=== PATIENT | male | born 1995 | race Caucasian/White ===

== ENCOUNTER 2018-07-27 08:09 | Emergency (ER) | payer OTHER ==
[2018-07-27 08:34] VITALS: BP 134/84
--- NOTE | 2018-07-27 08:35 | ED Physician Documentation ---
History of Present Illness - Stated complaint Stated Complaint: GROIN PX - History obtained from History obtained from: Patient - Additonal information Additional information: Patient is a previously healthy 23-year-old male with remote history of hydrocele presenting with left testicular pain over the past several days. Patient denies any known injury, trauma, heavy lifting, or other inciting incident. Patient reports swelling, redness, and pain to the left testicle only. Patient denies any right testicle complaints, as well as any changes to the penis including swelling, redness, drainage, lesions, or rash. Patient also denies hernias or other complaints to either groin. Patient denies history of or concern for STDs. He also denies abdominal pain, urine changes, stool changes, vomiting. Patient denies any particular improving or worsening factors to his complaints, but has been taking Tylenol. Review of Systems GI: denies: Abdominal Pain, Vomiting, Diarrhea : reports: Testicular pain. 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) - Present Medications Home Medications: Ambulatory Orders Medication Instructions Recorded Confirmed RX: Doxycycline Hyclate 100 mg PO BID #20 capsule 07/27/18 - Allergies Allergies/Adverse Reactions: Allergies Allergy/AdvReac Type Severity Reaction Status Date / Time No Known Drug Allergies Allergy Verified 07/27/18 08:34 PD ED PE NORMAL - General General: Alert and oriented X 3, No acute distress, Well developed/nourished - HEENT HEENT: Atraumatic - Respiratory Respiratory: No respiratory distress - Abdomen Abdomen: Soft, Non tender, Non distended - Male Male : Switch Inspector present, Other (No palpable inguinal hernias bilaterally. Penile exam within normal limits with no swelling, redness, drainage, lesions, or other rash present. Right testicle within normal limits. Left testicle swollen, slightly erythematous without rash, and tender.) - Derm Derm: Normal color, Warm and dry, No rash Results - Vitals Vitals: Vital Signs - 24 hr 07/27/18 08:20 Temperature 36.5 C Heart Rate 74 Respiratory 12 Rate Blood Pressure 134/84 H O2 Saturation 100 Oxygen O2 Source Room air - Labs Labs: Laboratory Tests 07/27/18 11:08 Urine Color YELLOW Urine Clarity CLEAR Urine pH 7.0 Ur Specific [place] 1.020 Urine Protein NEGATIVE Urine Glucose (UA) NEGATIVE Urine Ketones NEGATIVE Urine Occult Blood NEGATIVE Urine Nitrite NEGATIVE Urine Bilirubin NEGATIVE Urine Urobilinogen 0.2 (NORMAL) Ur Leukocyte Esterase NEGATIVE Ur Microscopic Review NOT INDICATED Urine Culture Comments NOT INDICATED PD MEDICAL DECISION MAKING - ED course Complexity details: re-evaluated patient, considered differential, d/w patient ED course: Most concerning for varicocele, epididymitis, hydrocele, hernia given patient's age, lack of inciting incident, and physical exam findings. Also consider torsion, orchitis, STD, but feel much less likely. Do not feel patient requires invasive testing, blood work, medications at this time, but do plan to obtain urine sample, STD testing, and ultrasound to further evaluate. Patient advised of this plan and is agreeable. Urinalysis return unremarkable. Gonorrhea/chlamydia testing is still pending. Ultrasound did find evidence of uncomplicated varicocele and hydrocele. Also plan to treat for epididymitis given patient's significant pain, as well as physical exam findings. Discussed results and recommendations with patient, who is agreeable to this plan. Departure - Departure Disposition: 01 Home, Self Care Clinical Impression: Varicocele Hydrocele Qualifiers: Hydrocele type: unspecified Qualified Code(s): N43.3 - Hydrocele, unspecified Condition: Good Instructions: ED Epididymitis, ED Varicocele Follow-Up: your,doctor [Other] Prescriptions: RX: Doxycycline Hyclate 100 mg PO BID #20 capsule Comments: Please take antibiotic as prescribed for possible epididymitis and testicular pain. Please refrain from sex until all symptoms have improved. Please follow- up with your primary care physician in next 2-3 days to discuss further referral to urologist or treatment for varicocele and hydrocele. May also use a jock strap at this time to help alleviate pain by elevating testicle. Please keep area otherwise clean and dry. Please return to ED sooner if experience worsening symptoms or other concerns. Discharge Date/Time: 07/27/18 11:34
--- NOTE | 2018-07-27 10:01 | Ultrasound Report ---
Reason: left testicle swelling, pain, redness Procedure Date: 07/27/2018 Accession Number: [id number] / [id number] Procedure: US - Testicle w/Doppler CPT Code: FULL RESULT: EXAM: SCROTAL ULTRASOUND EXAM DATE: 07/27/2018 09:31 AM. CLINICAL HISTORY: Left testicular swelling x2 days. Steady pain. COMPARISON: None. TECHNIQUE: Real-time scanning was performed with static images obtained. Color-flow images were utilized. FINDINGS: Right: Testis: 5 x 2.3 x 2.7 cm. Normal size and echotexture. No mass, calcification, or abnormal blood flow. Epididymis: 3.7 x 0.9 x 1.5 cm. Normal size and echotexture. No mass or abnormal blood flow. Hydrocele: Small. Varicocele: None. Left: Testis: 5 x 2.7 x 3.1 cm. Normal size and echotexture. No mass, calcification, or abnormal blood flow. Epididymis: 4.3 x 1 x 1.7 cm. Slightly diffusely increased in size. Normal in echotexture. No abnormal blood flow. Hydrocele: Small to moderate. Varicocele: Large varicocele. IMPRESSION: 1. Large left-sided varicocele. Small to moderate left-sided hydrocele. Slight increased volume to the left epididymis possibly due to venous congestion. These factors correspond to the palpable findings. 2. No evidence of torsion. No solid mass. [facility]
[2018-07-27] MEDS ORDERED: cefTRIAXone 250 MG VIAL IM STA (11:00)
[2018-07-27] MEDS ORDERED: LIDOCAINE 1% 2 ML VIAL SUBQ ONE (11:00)
[2018-07-27 11:40] LABS: BILIRUBIN,URINE NEGATIVE (NEGATIVE); GLUCOSE, URINE (UA) NEGATIVE (NEGATIVE); KETONES,URINE (UA) NEGATIVE (NEGATIVE); LEUKOCYTE ESTERASE, URINE NEGATIVE (NEGATIVE); NITRITE,URINE NEGATIVE (NEGATIVE); OCCULT BLOOD,URINE NEGATIVE (NEGATIVE); PROTEIN,URINE NEGATIVE (NEGATIVE); UROBILINOGEN,URINE 0.2 (NORMAL) E.U./dL (NORMAL)
[2018-07-27 11:43] LABS: CLARITY,URINE CLEAR (CLEAR)
== END 2018-07-27 11:34 | disposition home or self-care (01) ==
LOC: ED 08:09
DX: I86.1 Scrotal varices (principal); N43.3 Hydrocele, unspecified; Z87.438 Personal history of other diseases of male genital organs
CPT/HCPCS: 76870; 81001; 81003; 87086; 87491; 87591; 93975; 96372; 99283